=== PATIENT | male | born 1965 | race Caucasian/White ===

== ENCOUNTER 2024-10-24 06:30 | Emergency (ER) | payer SELFPAY ==
[~2024-10-24] VITALS: Ht 160 cm; Wt 72.0 kg
[2024-10-24 06:33] VITALS: O2SAT 99
[2024-10-24 07:19] LABS: BASOPHILS % 0.8 % (0.0-2.0); EOSINOPHILS % 4.7 % (0.0-5.0); HEMATOCRIT. 43.9 % (42.0-52.0); HEMOGLOBIN. 14.8 g/dL (14.0-18.0); LYMPHOCYTES % 38.9 % (20.0-50.0); MEAN PLATELET VOLUME 8.1 fl (7.4-10.4); MONOCYTES % 8.2 % (2.0-8.0); NEUTROPHILS % 47.4 % (40.0-76.0); PLATELET 286 x1000/uL (130-400); RED BLOOD CELL COUNT 4.70 mill/uL (4.7-6.1); RED CELL DISTRIBUTION WIDTH 14.2 % (11.6-14.6)
[2024-10-24 07:28] LABS: CREATININE 0.7 mg/dL (0.6-1.3)
[2024-10-24 07:29] LABS: UREA NITROGEN BLOOD 10 mg/dL (9-23)
[2024-10-24 07:30] LABS: ASPARTATE AMINOTRANSFERASE 19 IU/L (<34)
[2024-10-24 07:31] LABS: BILIRUBIN DIRECT 0.1 mg/dL (<=3.0); BILIRUBIN TOTAL 0.5 mg/dL (0.1-1.0); PROTEIN TOTAL 7.3 g/dL (6.0-8.3)
[2024-10-24] MEDS: ACETAMINOPHEN 325MG TABLET PO ONE (07:52)
[2024-10-24 08:19] VITALS: BP 126/76; PULSE 71; RESP 18; TEMP 37.1; O2SAT 95
== END 2024-10-24 08:23 | disposition home or self-care (01) ==
LOC: ER 06:30
DX: R10.32 Left lower quadrant pain (principal); E11.65 Type 2 diabetes mellitus with hyperglycemia; Z79.899 Other long term (current) drug therapy
CPT/HCPCS: 36415; 74176; 80048; 80076; 85025; 99284